=== PATIENT | female | born 1990 | race Hispanic/Latino ===

== ENCOUNTER → 2024-07-26 | Outpatient (CLI) | payer MEDICAID ==
[2024-07-26 13:06] LABS: BASOPHILS # (AUTO) 0.04 K/uL (0.00-0.20); BASOPHILS % (AUTO) 0.9 % (0.0-5.0); EOSINOPHILS # (AUTO) 0.05 K/uL (0.00-0.70); EOSINOPHILS % (AUTO) 1.2 % (0.0-8.0); HEMATOCRIT 42.2 % (36-48); LYMPHOCYTES # (AUTO) 1.5 K/uL (1.0-4.8); LYMPHOCYTES % (AUTO) 35.8 % (21.0-51.0); MEAN CORPUSCULAR HEMOGLOBIN 30.3 pg (27.0-33.0); MEAN CORPUSCULAR HGB CONC 34.4 g/dL (32.0-36.0); MEAN CORPUSCULAR VOLUME 88.3 fL (79-99); MONOCYTES # (AUTO) 0.2 K/uL (0.1-1.0); MONOCYTES % (AUTO) 5.2 % (3.0-13.0); NEUTROPHILS # (AUTO) 2.4 K/uL (1.8-7.7); NEUTROPHILS % (AUTO) 56.9 % (40.0-77.0); PLATELET COUNT (AUTO) 296 K/uL (130-400); RED BLOOD CELL COUNT(AUTO) 4.78 MIL/uL (4.00-5.50); RED CELL DISTRIBUTION WIDTH 12.2 % (11.0-15.5); WHITE BLOOD COUNT (AUTO) 4.2 K/uL (4.8-10.8)
[2024-07-26 13:08] LABS: ALBUMIN 4.2 g/dL (3.5-5.0); BILIRUBIN,TOTAL 0.9 mg/dL (0.2-1.0); CREATININE 0.5 mg/dL (0.5-1.0); MAGNESIUM 2.1 mg/dL (1.80-2.40); THYROID STIMULATING HORMONE 1.63 uIU/mL (0.36-3.74); TOTAL PROTEIN, SERUM 7.3 g/dL (6.0-8.3)
[2024-07-26 13:11] LABS: HEMOGLOBIN A1C 5.2 % (4.0-6.0)
[2024-07-26 13:26] LABS: % IRON SATURATION 18.5 % (22-44)
== END | disposition home or self-care (01) ==
LOC: LAB 11:13
PROVIDERS: ATTEND Surgery
DX: E66.01 Morbid (severe) obesity due to excess calories (principal); E78.00 Pure hypercholesterolemia, unspecified; K21.9 Gastro-esophageal reflux disease without esophagitis; M19.91 Primary osteoarthritis, unspecified site; G47.33 Obstructive sleep apnea (adult) (pediatric); Z68.38 Body mass index [BMI] 38.0-38.9, adult
CPT/HCPCS: 36415; 80053; 80061; 82306; 82607; 82728; 82746; 83036; 83540; 83550; 83735; 84207; 84425; 84439; 84443; 84446; 84481; 84590; 84630; 85025

== ENCOUNTER → 2024-07-26 | Outpatient (CLI) | payer OTHER ==
[~2024-07-26] VITALS: Ht 2.5 cm; Wt 91.2 kg
--- NOTE | 2024-07-26 16:02 | NUR ---
BARIATRIC INITIAL ASSESSMENT VISIT 1 OF 6 Wt: 201 lbs DOS:07/26/24 Daughter present during visit. Pt asked questions about insurance and if all visits were necessary, RD emphasized the importance of nutrition education prior to procedure. Pt seeking bariatric procedure to aid in wt loss. Pt reported she does not take medications or vitamins, heard of procedure with Dr. Vicente, has struggled with wt all her life, has tried FAD diets to lose wt but not exercise, CBW has been like that for weeks, no family members struggle with wt, does not know if she had a full hysterectomy or partial or tubes tied, works timers inspector, lives with her kids, cooks at home, grocery shops, does couponing after work so she walks a lot but also drives around a lot, stopped having sodas + sweets + fast food >1 month ago, her 1 yr old is not a picky eater, eats ~3 meals per day, takes 20 mins to eat, does not struggle with emotional eating, no anxiety or depression, no hx of infertility, work does not affect her eating habits, does not travel often, Pt does the most cooking, feels like she has the means to purchase healthy food with no issue, sleeps 5-6 hours per day, is able to exercise, family is aware she wants the procedure, goal wt of 150 lbs with no time-line. RD conducted 24 hr recall: Breakfast: coffee + wheat bread + butter Lunch: wings (5) + water Dinner: red meat + veggies + lentils + water Snack(s): N/A RD reviewed portion sizes with pt, reviewed healthy plate, informed Pt of importance of protein intake, demonstrated DM chart, reviewed carbohydrate sources and carbohydrate counting, provided and an estimate for estimated carbohydrate intake per day. Pt completed wt management program diet readiness questionnaire. Results are as follows: Section 1: Goals and Attitudes. Score of 28. The path is clear with respect to goals and attitudes. Sections 2: Hunger and Eating cues. Score 5. You might occasionally eat more than you would like, but it does not appear to be a result of high responsiveness to environmental cues. Controlling the attitudes that make you eat may be especially helpful. Section 3: Control over Eating. Score 5. You recover rapidly from mistakes. However, if you frequently alternate between eating out of control and dieting strictly, you may have a serious eating problem and should get professional help. Section 4: Celestina Eating and Purging: Score 0. It appears that binge eating, and purging is not a problem for you. Section 5: Emotional Eating: Score 9. You sometimes eat in response to emotional highs and lows. Monitor this behavior to learn when and why it occurs and be prepared to find alternative activities. Section 6: Exercise Patterns and Attitudes: Score 16.You need to feel more positive about exercise so that you can do it more often. Think of ways to be more active that are fun and fit your lifestyle. Goals Established: -MVI QD -protein with breakfast -walk additional time 10 min QD Pt in agreement with goals and is aware she will need to cut carbonated beverages, sweets and caffeine prior to surgery. Recommended for Pt to complete visits with Dietitian to prepare for bariatric procedure. Thank you for this visit. Addendum: 07/26/24 at [address] Amended: Links added.
== END | disposition home or self-care (01) ==
LOC: DTH 10:54 → EDBD 15:00
PROVIDERS: ATTEND Surgery
DX: E66.01 Morbid (severe) obesity due to excess calories (principal); G47.33 Obstructive sleep apnea (adult) (pediatric); M19.91 Primary osteoarthritis, unspecified site; K21.9 Gastro-esophageal reflux disease without esophagitis; E78.00 Pure hypercholesterolemia, unspecified; Z71.3 Dietary counseling and surveillance; Z68.38 Body mass index [BMI] 38.0-38.9, adult
CPT/HCPCS: 97802